=== PATIENT | male | born 1950 | race Caucasian/White ===

== ENCOUNTER → 2018-07-09 16:15 | Outpatient (CLI) | payer OTHER | END | disposition home or self-care (01) | LOC: D.LABREF 16:15 | DX: M17.12 Unilateral primary osteoarthritis, left knee (principal); Z11.8 Encounter for screening for other infectious and parasitic diseases ==

== ENCOUNTER 2018-07-16 10:06 | Inpatient (IN) | payer MEDICARE, BC ==
[~2018-07-16] VITALS: Ht 185.4 cm; Wt 106.8 kg
[2018-08-14] MEDS ORDERED: COZAAR25 MG PO (16:14)
[2018-08-14] MEDS ORDERED: LIPITOR40 MG PO (16:14)
[2018-08-14] MEDS ORDERED: HYDROCHLOROTHIA25 MG PO (16:14)
[2018-08-15] MEDS ORDERED: HYDROXYZINE HCL50 MG PO (10:35)
[2018-08-15] MEDS ORDERED: ULTRAM50 MG PO (10:35)
[2018-08-15] MEDS ORDERED: AREDS PO (10:36)
[2018-08-15 11:15] LABS: APTT 28.6 SECONDS (22.8-39.4); INR 1.02 (0.85-1.17); PROTIME 12.9 SECONDS (11.6-15.0)
[2018-08-15 11:17] LABS: ANION GAP 12.8 mmol/L (8-16); CALCIUM 9.3 mg/dL (8.5-10.1); CARBON DIOXIDE 29.7 mmol/L (21.0-32.0); CREATININE - SERUM 1.2 mg/dL (0.6-1.3); POTASSIUM - SERUM 3.5 mmol/L (3.5-5.1)
[2018-08-15 12:08] LABS: APPEARANCE CLEAR (CLEAR); BILIRUBIN NEGATIVE (NEGATIVE); COLOR YELLOW (YELLOW); GLUCOSE NEGATIVE (NEGATIVE); KETONE NEGATIVE (NEGATIVE); NITRITE NEGATIVE (NEGATIVE); PROTEIN NEGATIVE (NEGATIVE); UROBILINOGEN NORMAL (NORMAL)
[2018-08-15 12:18] LABS: BASOPHILS 0.7 % (0-2); EOSINOPHILS 4.3 % (0-7); HEMATOCRIT 45.1 % (42.0-54.0); IMMATURE GRANULOCYTES 0.1 % (0-5); LYMPHOCYTES 36.8 % (15-50); MCH 28.6 pg (26.0-34.0); MCHC 33.3 g/dL (31.0-37.0); MCV 86.1 fL (80.0-100.0); MEAN PLATELET VOLUME 11.4 fL (7.4-10.4); MONOCYTES 7.4 % (2-11); NEUTROPHILS 50.7 % (40-80); PLATELET COUNT 173 10x3/uL (130-400); RBC 5.24 10x6/uL (4.20-6.10); RDW 14.7 % (11.5-14.5); WBC 8.2 10x3/uL (4.8-10.8)
[2018-08-15 12:19] LABS: ERYTHROCYTE SEDIMENTATION RATE 7 mm/hr (0-20)
[2018-08-21 07:46] VITALS: BP 133/81; BMI 31.0
--- NOTE | 2018-08-21 11:59 | NUR ---
PLASMA BLADE SET 6/8 BOVIE PAD RIGHT THIGH [id number] EXP 12/08/2019
--- NOTE | 2018-08-21 14:35 | NUR ---
PT ARRIVED TO UNIT FROM RECOVERY TO ROOM 2207, ORIENTED TO ROOM CL IN REACH
[2018-08-21 14:37] VITALS: BP 101/69
[2018-08-21 18:12] VITALS: Ht 185.4 cm; Wt 106.8 kg
--- NOTE | 2018-08-21 19:40 | OP ---
PATIENT NAME: FELIPE HAYWARD MEDICAL RECORD: [id number] :48 LOCATION:D.MS [id number] ADMISSION DATE:08/21/18 SURGEON: JOSÉ LUIS LLOYD DO DATE OF OPERATION: 08/21/2018 PROCEDURE PERFORMED: Left total knee arthroplasty. PREOPERATIVE DIAGNOSIS: Left knee osteoarthritis. POSTOPERATIVE DIAGNOSIS: Left knee osteoarthritis. INDICATIONS: Mr. Hayward is a 68-year-old male who has had knee pain for quite some time. He did have an infection in that knee approximately 7 years ago. He has been infection free for 7 years. He had it washed out and was on IV antibiotics and had not had any problem since. In lieu of that, I got an MRI of the knee to ensure there was no osteomyelitis and did an aspiration of his knee as well. No cultures of any bacteria were grown of the knee aspirate and no osteo was noted on the MRI. He has been tired of dealing with this pain in his knee and he is ready to have something done. He was informed of risks and benefits of the procedure including increased risk for infection due to his previous infection, damage to nerves and vessels, blood clots, even , need for further surgery, and fracture. He was okay with those risks and signed the consent. SURGEON: José Luis Lloyd DO PROCESS SPECIALIST: Marshall Bello, Advanced Nurse Practitioner. He assisted with closing and retracting, and could not have been performed without his assistance. DESCRIPTION OF PROCEDURE: The patient received a block by anesthesia in the preoperative area. He was taken to the operative suite and laid in the supine position. The left lower extremity was prepped and draped in sterile fashion. He was given 900 mg of clindamycin due to vancomycin allergy and a gram of TXA. The time-out was performed and everyone was in agreement with correct site, side, and patient. The procedure then began after marking out the knee over the prior incision and wrapping it with Ioban. With #10 blade scalpel down to the capsule, capsule was opened in with a fresh #10 blade scalpel. Through the medial parapatellar approach, the previous incision was used, there was quite a bit of scar tissue there. Some of it was removed behind the patella. At that time, the patella was everted and milled down to fit the patellar prosthesis. The knee was then flexed up and then a drill was used into the femoral canal. The distal femur was then cut. Once the distal femur was cut, the tibia was exposed and the tibia was cut as well. After the tibia had been cut, the knee was brought to extension and any remaining bone was removed at that time and the medial and lateral menisci as well. Any bleeders were coagulated with the Aquamantys at that time. A medial release was done at that time due to the fact he had some extra tension on the knee on the medial side. Then, extension block was put in and fit well. The knee was then flexed up and the femur was measured to be 75. A 4-in-1 cutting block was put on. Clemente wing was used to ensure it did not notch and a formal cutting block was used to cut the femur. The trial was then put on and then tibial tray was floated in. Once the tibial tray was floated in, rotation was marked and this was removed and the lug holes were drilled for the femur and the patella was drilled for the prosthesis. The trials were removed and the tibia was sized to be an 83. This was punched and OPERATIVE REPORT [id number] FELIPE HAYWARD drilled and then cement was mixed and placed in the tibia and on the prosthesis. This was impacted in place. Excess cement was removed. The femur was then impacted on and the poly was put in between the tibia and the femur, brought to extension. The patella was put on and squeezed into place. Excess cement was removed from that. While the cement dried, the knee was irrigated thoroughly. Any bleeders were coagulated. We then began with a 10 poly. It fit somewhat well and got almost hyperextension as it went to 12 and then to 14. He had some laxity medially and deep flexion. Then, the 16 poly was put in and could not get full extension. I then put a towel clamp on the capsule, closing it, and then tested it in deep flexion. There was no loosening noted at that time. This was likely due to release of the MCL; but with the capsule closed, it was not unstable. The 14 poly was then put in and the locking mechanism was put in. The knee was irrigated one more time and then Surgicel beads were placed in gutters as well as tobramycin powder. The knee was closed with #2 Ethibond and the capsule in a [id number] fashion. That was then irrigated and the skin was closed with 2-0 Vicryl in inverted interrupted fashion. ZipLine was placed on the knee. Adaptic, 4 x 4, ABD, Webril, and Tyree wrap were then placed on the table. CHRISTELLE hose stockinette was placed up the knee. The patient was then awakened and taken to the recovery in stable condition. BLOOD LOSS: Approximately 200 mL. COMPLICATIONS: None. TRANSINT:[id number] Voice Confirmation ID: [id number] DOCUMENT ID: [id number] JOSÉ LUIS LLOYD DO at 1940 CC: [id number] DICTATION DATE: 08/21/18 1342 FIREFIGHTING EQUIPMENT SPECIALIST: 08/21/18 1548 ADM IN [facility] [address] [place] [address]
--- NOTE | 2018-08-21 19:42 | NUR ---
I have reviewed this patient and I concur with the Shift Assessment completed by the Licensed Practical Nurse today this shift.
[2018-08-22] VITALS (7 sets, daily range): BP systolic 98–141; BP diastolic 64–80
[2018-08-22 06:16] LABS: HEMATOCRIT 38.8 % (42.0-54.0); HEMOGLOBIN 13.1 g/dL (13.5-17.5); MCH 29.2 pg (26.0-34.0); MCHC 33.8 g/dL (31.0-37.0); MCV 86.4 fL (80.0-100.0); MEAN PLATELET VOLUME 11.6 fL (7.4-10.4); RBC 4.49 10x6/uL (4.20-6.10); RDW 14.6 % (11.5-14.5); WBC 7.2 10x3/uL (4.8-10.8)
--- NOTE | 2018-08-22 08:24 | NUR ---
AWAKE AND ALERT. ORIENTED X3. NO C/O AT THIS TIME. LUNGS ARE CLEAR BILATERALLY, NO COUGH NOTED. SKIN IS INTACT WITHOUT REDNESS EXCPEET INCISION TO LEFT KNEE, WHICH HAS A DRY INTACT DRESSING IN PLACE IV TO LEFT FOREARM IS PATENT WTIHOUT REDNESS AT INSERTION SITE. DENIES NEEDS. CLEAR YELLOW URINE IN URINAL. DENIES NEEDS.
--- NOTE | 2018-08-22 09:30 | NUR ---
UP IN HALLWAY WITH PT USING RW. IN CHAIR AT BEDSIDE.
[2018-08-22 09:42] LABS: BASOPHILS 0.6 % (0-2); EOSINOPHILS 1.4 % (0-7); HEMATOCRIT 38.6 % (42.0-54.0); HEMOGLOBIN 12.9 g/dL (13.5-17.5); IMMATURE GRANULOCYTES 0.1 % (0-5); LYMPHOCYTES 26.1 % (15-50); MCH 29.1 pg (26.0-34.0); MCHC 33.4 g/dL (31.0-37.0); MCV 86.9 fL (80.0-100.0); MEAN PLATELET VOLUME 11.3 fL (7.4-10.4); MONOCYTES 9.6 % (2-11); NEUTROPHILS 62.2 % (40-80); PLATELET COUNT 148 10x3/uL (130-400); RBC 4.44 10x6/uL (4.20-6.10); RDW 14.6 % (11.5-14.5); WBC 7.2 10x3/uL (4.8-10.8)
[2018-08-22 10:02] LABS: ALBUMIN 3.2 g/dL (3.4-5.0); ANION GAP 10.8 mmol/L (8-16); BILIRUBIN - TOTAL 2.08 mg/dL (0.2-1.3); CALCIUM 7.9 mg/dL (8.5-10.1); CARBON DIOXIDE 30.3 mmol/L (21.0-32.0); CREATININE - SERUM 1.1 mg/dL (0.6-1.3); POTASSIUM - SERUM 4.1 mmol/L (3.5-5.1); PROTEIN - SERUM 5.6 g/dL (6.4-8.2)
--- NOTE | 2018-08-22 12:34 | NUR ---
PAIN CONTINUED TO BE 10/10 AFTER OXYCODONE GIVEN. TORDAL GIVEN FOR PAIN 10/10. WILL CONTINUE TO MONITOR. .
--- NOTE | 2018-08-22 13:08 | NUR ---
STATES PAIN IS DECREASED TO 6/10 AFTER RECEIVING TORDOL. "THE MEDICINE IS WORKING."
--- NOTE | 2018-08-22 14:15 | NUR ---
TEDS OFF AT THIS TIME. DENIES NEEDS.
--- NOTE | 2018-08-22 15:30 | NUR ---
CHRISTELLE'S REAPPLIED. NO C/O AT THIS TIME. DENIES NEEDS.
--- NOTE | 2018-08-22 18:00 | NUR ---
ATE ALL OF SUPPER. CPM IN PLACE AT THIS TIME. REQUESTED AND GIVEN 10MG OXY PO FOR C/O LEFT KNEE PAIN LEVEL 10. WILL MONITOR.
--- NOTE | 2018-08-22 20:00 | NUR ---
RESTING IN BED RESP UNLABORED CPM IN USE, NO APPARENT DISTRESS CALL ALICIA HA
[2018-08-23] VITALS: BP 120/68
[2018-08-23 05:05] LABS: BASOPHILS 0.5 % (0-2); EOSINOPHILS 3.8 % (0-7); HEMATOCRIT 38.6 % (42.0-54.0); HEMOGLOBIN 12.8 g/dL (13.5-17.5); LYMPHOCYTES 27.6 % (15-50); MCH 28.8 pg (26.0-34.0); MCHC 33.2 g/dL (31.0-37.0); MCV 86.7 fL (80.0-100.0); MEAN PLATELET VOLUME 11.3 fL (7.4-10.4); MONOCYTES 10.2 % (2-11); NEUTROPHILS 57.9 % (40-80); PLATELET COUNT 135 10x3/uL (130-400); RBC 4.45 10x6/uL (4.20-6.10); RDW 14.6 % (11.5-14.5)
[2018-08-23 05:26] LABS: ANION GAP 10.7 mmol/L (8-16); BILIRUBIN - TOTAL 2.56 mg/dL (0.2-1.3); CALCIUM 8.2 mg/dL (8.5-10.1); CARBON DIOXIDE 31.1 mmol/L (21.0-32.0); CREATININE - SERUM 1.3 mg/dL (0.6-1.3); POTASSIUM - SERUM 3.8 mmol/L (3.5-5.1); PROTEIN - SERUM 6.4 g/dL (6.4-8.2)
--- NOTE | 2018-08-23 08:06 | NUR ---
AWAKE AND ALERT. ORIENTED X3. NO C/O AT THIS TIME. LUNGS ARE CLEAR BILATERALLY, NO COUGH NOTED. REPORTS USING IS INSTRUCTED. SKIN IS INTACT WITHOUT REDNESS EXCEPT INCISION TO RIGHT KNEE WHICH HAS A DRY INTACT DRESSING IN PLACE. ON CPM AT THIS TIME. SCD'S AND TEDS IN PLACE. SL TO LEFT FOREARM IS PATENT WITHOUT REDNESS AT INSERTION SITE. DENIES NEEDS.
--- NOTE | 2018-08-23 08:39 | NUR ---
REQUESTED AND GIVEN 10 MG OXY IR PO FOR C/O LEFT KNEE LEVEL 10. WILL MONITOR.
[2018-08-23 09:36] VITALS: BP 113/65
--- NOTE | 2018-08-23 10:05 | NUR ---
HERE ASSISTING WITH BATH. C/O SOME NAUSEA AT THIS TIME. WILL MONITOR.
--- NOTE | 2018-08-23 10:13 | MORECARE ---
CASE MANAGEMENT DISCHARGE SUMMARY PATIENT: FELIPE CONTRERAS UNIT: [id number] ADM DATE: 08/21/18 AGE: 68 : 49 SEX: M ROOM/BED: D.2208 AUTHOR: DAHLIA HANSON PHYSICIAN: REFERRING PHYSICIAN: RALPH LLOYD DO DATE OF SERVICE: 08/23/18 Discharge Plan Patient Name: FELIPE CONTRERAS Facility: [facility]:[place] : 1950 Planned Disposition: Home Health Service Anticipated Discharge Date: Discharge Date: Expected LOS: Initial Reviewer: [email or web address] Initial Review Date: 08/21/2018 Generated: 08/23/18 11:13 am DCPIA - Discharge Planning Initial Assessment Updated by [email or web address]: Stephanie Montano on 08/23/18 10:11 am * Is the patient Alert and Oriented? Yes * How many steps to enter\exit or inside your home? * [facility] * [facility]) * Preadmission Environment Home with Family * ADLs Independent * Equipment Bedside Commode Rolling Walker Shower Chair * Other Equipment CPM ICE MACHINE * List name and contact numbers for known caregivers / representatives who currently or will assist patient after discharge: ALEXANDER ()[phone] * Verbal permission to speak to the caregivers and representatives has been obtained from the patient. Yes * Community resources currently utilized None * Additional services required to return to the preadmission environment? Yes * Can the patient safely return to the preadmission environment? Yes * Has this patient been hospitalized within the prior 30 days at any hospital? No Patient Name: FELIPE CONTRERAS Page [id number] at 1013 All edits/amendments must be made on the electronic document DICTATION DATE: 08/23/18 1013 SPEECH PATHOLOGY SUPERVISOR: JESUS ALBERTO 08/23/18 1013 RPT#: [id number] DC DATE: STATUS: ADM IN [facility] [address] [place] [address] END OF REPORT
--- NOTE | 2018-08-23 10:20 | MORECARE ---
CASE MANAGEMENT DISCHARGE SUMMARY PATIENT: FELIPE CONTRERAS UNIT: [id number] ADM DATE: 08/21/18 AGE: 68 : 49 SEX: M ROOM/BED: D.2204 AUTHOR: DAHLIA HANSON PHYSICIAN: REFERRING PHYSICIAN: RALPH LLOYD DO DATE OF SERVICE: 08/23/18 Discharge Plan Patient Name: FELIPE CONTRERAS Facility: [facility]:[place] : 1950 Planned Disposition: Home Health Service Anticipated Discharge Date: Discharge Date: Expected LOS: Initial Reviewer: [email or web address] Initial Review Date: 08/21/2018 Generated: 08/23/18 11:20 am Comments DCP- Discharge Planning Updated by [email or web address]: Stephanie Montano on 08/23/18 9:[address] Patient Name: FELIPE CONTRERAS Admission Status: Elective Accout number: [id number] Admission Date: 08-21-2018 : 1950 Admission Diagnosis: Attending: RALPH LLOYD Current LOS: 2 Anticipated DC Date: Planned Disposition: Home Health Service Primary Insurance: MEDICARE A & B Discharge Planning Comments: CM met with patient to complete initial dc planning assessment. CM educated patient on the CM role and verbal consent given by patient to complete assessment. Patient lives at home with his . At discharge patient plans to return home with home health and feels this is a safe discharge. CM discussed availability of home health, rehab services, and medical equipment. Patient has a walker, cpm, ice machine, and bsc at home that was set up by Dr Lloyd's office. NUNU with [facility]. I called and spoke with Amalia. I will send clinical over to her office. IMM served and explained, copy in chart. CM will continue to follow and will assist as needed with dc plans/needs. Antique Dealer: Stephanie Montano DCPIA - Discharge Planning Initial Assessment Updated by [email or web address]: Stephanie Montano on 08/23/18 10:11 am * Is the patient Alert and Oriented? Yes * How many steps to enter\exit or inside your home? * [facility] * [facility] * Preadmission Environment Home with Family * ADLs Independent * Equipment Bedside Commode Rolling Walker Shower Chair * Other Equipment CPM ICE MACHINE * List name and contact numbers for known caregivers / representatives who currently or will assist patient after discharge: MARLA ()[phone] * Verbal permission to speak to the caregivers and representatives has been obtained from the patient. Yes * Community resources currently utilized None * Additional services required to return to the preadmission environment? Yes * Can the patient safely return to the preadmission environment? Yes * Has this patient been hospitalized within the prior 30 days at any hospital? No Coverage Notice Reviewer: [id number] Svetlana Montano Notice Issued Date-Time: 08/23/2018 9:50 Notice Type: IM Discharge Notice Notice Delivered To: Family Member Relationship to Patient: Spouse Company Secretary Name: marla Delivery Method: HAND - Hand Delivered Carla Days: Prior Verbal Notification: Recipient Understood Notice: Yes Recipient Signature: Yes Med Rec Note Co-signed by Attending: Coverage Notice Comment: Last DP export: 08/23/18 9:13 am Patient Name: FELIPE CONTRERAS Page 24830 at 1020 All edits/amendments must be made on the electronic document DICTATION DATE: 08/23/18 1019 CHEF & OWNER: JESUS ALBERTO 08/23/18 1019 RPT#: [id number] DC DATE: STATUS: ADM IN [facility] [address] [place] [address] END OF REPORT
--- NOTE | 2018-08-23 10:27 | MORECARE ---
CASE MANAGEMENT DISCHARGE SUMMARY PATIENT: FELIPE CONTRERAS UNIT: [id number] ADM DATE: 08/21/18 AGE: 68 : 49 SEX: M ROOM/BED: D.2203 AUTHOR: DAHLIA HANSON PHYSICIAN: REFERRING PHYSICIAN: RALPH LLOYD DO DATE OF SERVICE: 08/23/18 Discharge Plan Patient Name: FELIPE CONTRERAS Facility: [facility]:[place] : 1950 Planned Disposition: Home Health Service Anticipated Discharge Date: Discharge Date: Expected LOS: Initial Reviewer: [email or web address] Initial Review Date: 08/21/2018 Generated: 08/23/18 11:26 am Comments DCP- Discharge Planning Updated by [email or web address]: Stephanie Montano on 08/23/18 9:[address] Patient Name: FELIPE CONTRERAS Admission Status: Elective Accout number: [id number] Admission Date: 08-21-2018 : 1950 Admission Diagnosis: Attending: RALPH LLOYD Current LOS: 2 Anticipated DC Date: Planned Disposition: Home Health Service Primary Insurance: MEDICARE A & B Discharge Planning Comments: CM met with patient to complete initial dc planning assessment. CM educated patient on the CM role and verbal consent given by patient to complete assessment. Patient lives at home with his . At discharge patient plans to return home with home health and feels this is a safe discharge. CM discussed availability of home health, rehab services, and medical equipment. Patient has a walker, cpm, ice machine, and bsc at home that was set up by Dr Lloyd's office. NUNU with [facility]. I called and spoke with Amalia. I will send clinical over to her office. IMM served and explained, copy in chart. CM will continue to follow and will assist as needed with dc plans/needs. Evp General Counsel: Stephanie Montano DCPIA - Discharge Planning Initial Assessment Updated by [email or web address]: Stephanie Montano on 08/23/18 10:11 am * Is the patient Alert and Oriented? Yes * How many steps to enter\exit or inside your home? * [facility] * [facility] * Preadmission Environment Home with Family * ADLs Independent * Equipment Bedside Commode Rolling Walker Shower Chair * Other Equipment CPM ICE MACHINE * List name and contact numbers for known caregivers / representatives who currently or will assist patient after discharge: MARLA ()[phone] * Verbal permission to speak to the caregivers and representatives has been obtained from the patient. Yes * Community resources currently utilized None * Additional services required to return to the preadmission environment? Yes * Can the patient safely return to the preadmission environment? Yes * Has this patient been hospitalized within the prior 30 days at any hospital? No External Providers External Provider: [employer] Next Contact Date: Service Request Date: Service Type: Resolution: Reviewer: Comments: Coverage Notice Reviewer: [email or web address] Svetlana Montano Notice Issued Date-Time: 08/23/2018 9:50 Notice Type: IM Discharge Notice Notice Delivered To: Family Member Relationship to Patient: Spouse Rainbow Trout Farm Manager Name: marla Delivery Method: HAND - Hand Delivered Carla Days: Prior Verbal Notification: Recipient Understood Notice: Yes Recipient Signature: Yes Med Rec Note Co-signed by Attending: Coverage Notice Comment: Last DP export: 08/23/18 9:20 am Patient Name: FELIPE CONTRERAS Page [id number] at 1027 All edits/amendments must be made on the electronic document DICTATION DATE: 08/23/18 1026 CAREER CENTER DIRECTOR: JESUS ALBERTO 08/23/18 1026 RPT#: [id number] DC DATE: STATUS: ADM IN [facility] [address] [place] [address] END OF REPORT
[2018-08-23 17:31] VITALS: BP 98/64
[2018-08-23 20:00] VITALS: BP 111/57
--- NOTE | 2018-08-23 20:00 | NUR ---
AWAKE AND ALERT RESTING IN BED WITH CMP IN USE TOLERATING WELL, DENIES NEEDS AT THIS TIME CALL LIGHT IN REACH
[2018-08-24 04:00] VITALS: BP 121/65
--- NOTE | 2018-08-24 04:26 | NUR ---
DR LLOYD NOTIFIED OF ELEVATED TEMP 102, ORDER RECIEVED FOR TYLENOL AND TO ENCOURAGE INSENTIVE SPRIMETER USE , O2 REPLACED AT 2 L DUE TO O2 SAT 84 UP TO 89
[2018-08-24 04:34] LABS: BASOPHILS 0.3 % (0-2); EOSINOPHILS 4.5 % (0-7); HEMATOCRIT 37.5 % (42.0-54.0); HEMOGLOBIN 12.4 g/dL (13.5-17.5); IMMATURE GRANULOCYTES 0.2 % (0-5); LYMPHOCYTES 19.7 % (15-50); MCH 28.5 pg (26.0-34.0); MCHC 33.1 g/dL (31.0-37.0); MCV 86.2 fL (80.0-100.0); MEAN PLATELET VOLUME 11.4 fL (7.4-10.4); MONOCYTES 8.6 % (2-11); NEUTROPHILS 66.7 % (40-80); PLATELET COUNT 130 10x3/uL (130-400); RBC 4.35 10x6/uL (4.20-6.10); RDW 14.3 % (11.5-14.5)
[2018-08-24 04:41] LABS: ALBUMIN 2.9 g/dL (3.4-5.0); ANION GAP 13.5 mmol/L (8-16); BILIRUBIN - TOTAL 2.18 mg/dL (0.2-1.3); CALCIUM 8.4 mg/dL (8.5-10.1); CARBON DIOXIDE 30.1 mmol/L (21.0-32.0); CREATININE - SERUM 1.5 mg/dL (0.6-1.3); POTASSIUM - SERUM 3.6 mmol/L (3.5-5.1); PROTEIN - SERUM 6.6 g/dL (6.4-8.2)
--- NOTE | 2018-08-24 08:22 | NUR ---
PT RESTING IN BED. ON CPM. I.S EDUCATION GIVEN. COUGH AND DEEP BREATHING ENCOURAGED. NO S/S OF ACUTE DISTRESS. CL IN PLACE.
[2018-08-24 08:45] VITALS: BP 100/63
[2018-08-24 12:59] VITALS: BP 96/53
--- NOTE | 2018-08-24 14:12 | NUR ---
PT CO OF IV ITCHING. FLUSHED WELL. STOPPED AZYTHROMYCIN. CALLED RICH WITH PHARM WHO STATED "NOT IN THE SAME FAMILY VANCOMYCIN". SPOKE WITH JESS ROSA WHO SUGGESTED GIVEN ATARAX ORDERED PER MD. NO S/S OF ACUTE DISTRESS. CL IN PLACE.
[2018-08-24 15:58] LABS: APPEARANCE CLEAR (CLEAR); BILIRUBIN NEGATIVE (NEGATIVE); COLOR YELLOW (YELLOW); GLUCOSE NEGATIVE (NEGATIVE); KETONE NEGATIVE (NEGATIVE); NITRITE NEGATIVE (NEGATIVE); PROTEIN TRACE mg/dL (NEGATIVE); UROBILINOGEN NORMAL (NORMAL)
[2018-08-24 17:45] VITALS: BP 111/71
--- NOTE | 2018-08-24 18:36 | NUR ---
PT RESTING IN BED. CO OF PAIN. TORDOL GIVEN. NO S/S OF ACUTE DISTRESS. AT BEDSIDE. CL IN PLACE.
--- NOTE | 2018-08-24 19:15 | NUR ---
RECEIVED CARE FROM DAY NURSE. LYING IN BED WITH CPM IN PLACE. REQUEST IT TO BE REMOVED, DONE AT THIS TIME. NO OTHER NEEDS VOICED AT THIS TIME. CALL LIGHT AT SIDE. IV INFUSING PER ORDER TO LEFT AC.
[2018-08-24 20:00] VITALS: BP 101/48
--- NOTE | 2018-08-24 20:30 | NUR ---
CHRISTELLE'S REMOVED FOR NIGHT
[2018-08-24 23:35] VITALS: BP 109/63
[2018-08-25 04:00] VITALS: BP 94/44
--- NOTE | 2018-08-25 06:01 | NUR ---
PLACED ON CPM
--- NOTE | 2018-08-25 06:01 | NUR ---
CHRISTELLE'S PUT ON FOR DAY
[2018-08-25 06:17] LABS: BASOPHILS 0.5 % (0-2); HEMATOCRIT 30.4 % (42.0-54.0); HEMOGLOBIN 10.2 g/dL (13.5-17.5); IMMATURE GRANULOCYTES 0.2 % (0-5); LYMPHOCYTES 25.3 % (15-50); MCH 28.8 pg (26.0-34.0); MCHC 33.6 g/dL (31.0-37.0); MCV 85.9 fL (80.0-100.0); MEAN PLATELET VOLUME 11.3 fL (7.4-10.4); MONOCYTES 11.3 % (2-11); NEUTROPHILS 53.7 % (40-80); PLATELET COUNT 126 10x3/uL (130-400); RBC 3.54 10x6/uL (4.20-6.10); RDW 14.1 % (11.5-14.5)
[2018-08-25 06:26] LABS: WBC 5.9 10x3/uL (4.8-10.8)
[2018-08-25 06:49] LABS: ALBUMIN 2.6 g/dL (3.4-5.0); ANION GAP 13.4 mmol/L (8-16); BILIRUBIN - TOTAL 1.96 mg/dL (0.2-1.3); CALCIUM 7.9 mg/dL (8.5-10.1); CARBON DIOXIDE 29.1 mmol/L (21.0-32.0); CREATININE - SERUM 1.3 mg/dL (0.6-1.3); POTASSIUM - SERUM 3.5 mmol/L (3.5-5.1); PROTEIN - SERUM 5.8 g/dL (6.4-8.2)
--- NOTE | 2018-08-25 08:09 | NUR ---
PT RESTING IN BED. AROUSED BY VERBAL STIMULI. "WANTS TO GO HOME". DENIES PAIN. NO S/S OF ACUTE DISTRESS. CL IN PLACE.
[2018-08-25] MEDS ORDERED: ELIQUIS2.5 MG PO (09:28)
[2018-08-25] MEDS ORDERED: HYDROXYZINE HCL50 MG PO (09:28)
[2018-08-25] MEDS ORDERED: OXYCODONE HCL5 M1 PO (09:29)
[2018-08-25] MEDS ORDERED: KEFLEX500 MG PO (09:29)
[2018-08-25 10:59] VITALS: BP 123/71
--- NOTE | 2018-08-25 11:41 | NUR ---
DC INSTRUCTIONS AND EDUCATION DONE WITH PT AND . IV DC WITH TIP IN TACT. ASSISTED PT OFF FLOOR VIA WC. ALL BELONGINGS CARRIED DOWN BY . NO S/S OF ACUTE DISTRESS.
--- NOTE | 2018-08-27 14:55 | MORECARE ---
CASE MANAGEMENT DISCHARGE SUMMARY PATIENT: FELIPE CONTRERAS UNIT: [id number] ADM DATE: 08/21/18 AGE: 68 : 49 SEX: M ROOM/BED: D.2205 AUTHOR: DAHLIA HANSON PHYSICIAN: REFERRING PHYSICIAN: RALPH LLOYD DO DATE OF SERVICE: 08/27/18 Discharge Plan Patient Name: FELIPE CONTRERAS Facility: [facility]:[place] : 1950 Planned Disposition: Home Health Service Anticipated Discharge Date: Discharge Date: 08/25/2018 Expected LOS: 0 Initial Reviewer: [email or web address] Initial Review Date: 08/21/2018 Generated: 08/27/18 3:55 pm Comments DCP- Discharge Planning Updated by [email or web address]: Stephanie Montano on 08/23/18 8:[address] Patient Name: FELIPE CONTRERAS Admission Status: Elective Accout number: [id number] Admission Date: 08-21-2018 : 1950 Admission Diagnosis: Attending: RALPH LOLYD Current LOS: 2 Anticipated DC Date: Planned Disposition: Home Health Service Primary Insurance: MEDICARE A & B Discharge Planning Comments: CM met with patient to complete initial dc planning assessment. CM educated patient on the CM role and verbal consent given by patient to complete assessment. Patient lives at home with his . At discharge patient plans to return home with home health and feels this is a safe discharge. CM discussed availability of home health, rehab services, and medical equipment. Patient has a walker, cpm, ice machine, and bsc at home that was set up by Dr Lloyd's office. NUNU with [facility]. I called and spoke with Amalia. I will send clinical over to her office. IMM served and explained, copy in chart. CM will continue to follow and will assist as needed with dc plans/needs. Change Management Analyst: Stephanie Montano DCPIA - Discharge Planning Initial Assessment Updated by [email or web address]: Stephanie Montano on 08/23/18 10:11 am * Is the patient Alert and Oriented? Yes * How many steps to enter\exit or inside your home? * [facility] * [facility] ([facility] * Preadmission Environment Home with Family * ADLs Independent * Equipment Bedside Commode Rolling Walker Shower Chair * Other Equipment CPM ICE MACHINE * List name and contact numbers for known caregivers / representatives who currently or will assist patient after discharge: MARLA ()[phone] * Verbal permission to speak to the caregivers and representatives has been obtained from the patient. Yes * Community resources currently utilized None * Additional services required to return to the preadmission environment? Yes * Can the patient safely return to the preadmission environment? Yes * Has this patient been hospitalized within the prior 30 days at any hospital? No Coverage Notice Reviewer: [id number] Svetlana Montano Notice Issued Date-Time: 08/23/2018 9:50 Notice Type: IM Discharge Notice Notice Delivered To: Family Member Relationship to Patient: Spouse Tram Operator Name: marla Delivery Method: HAND - Hand Delivered Carla Days: Prior Verbal Notification: Recipient Understood Notice: Yes Recipient Signature: Yes Med Rec Note Co-signed by Attending: Coverage Notice Comment: Last DP export: 08/23/18 8:27 am Patient Name: FELIPE CONTRERAS Page [id number] at 1455 All edits/amendments must be made on the electronic document DICTATION DATE: 08/27/181453 BROOMCORN GRADER: JESUS ALBERTO 08/27/181453 RPT#: [id number] DC DATE:08/25/18 STATUS: DIS IN [facility] [address] [place] [address] END OF REPORT
== END 2018-08-25 11:43 | disposition home health service (06) | DRG 470 ==
LOC: D.MS 08-21 07:20 → D.SDCHOLD 08-21 07:20 → D.MS 08-21 14:26
PROVIDERS: Emergency Medicine; ADMIT Orthopaedic Surgery; ATTEND Orthopaedic Surgery
PROC: 0SRD0JZ Replacement of Left Knee Joint with Synthetic Substitute, Open Approach (ICD-10-PCS; principal; 2018-08-21 09:30)
DX: M17.12 Unilateral primary osteoarthritis, left knee (principal); J98.11 Atelectasis; D62 Acute posthemorrhagic anemia; I10 Essential (primary) hypertension; I25.10 Atherosclerotic heart disease of native coronary artery without angina pectoris; H91.92 Unspecified hearing loss, left ear

== ENCOUNTER → 2018-07-24 09:48 | Outpatient (CLI) | payer MEDICARE, BC ==
[~2018-07-24 09:48] MED LIST: AREDS PO; COZAAR25 MG PO; HYDROCHLOROTHIA25 MG PO; HYDROXYZINE HCL50 MG PO; LIPITOR40 MG PO; ULTRAM50 MG PO
== END | disposition home or self-care (01) ==
LOC: D.MRI 09:48
DX: M17.12 Unilateral primary osteoarthritis, left knee (principal)

== ENCOUNTER → 2018-08-15 07:09 | Outpatient (CLI) | payer MEDICARE, BC | END | disposition home or self-care (01) | LOC: D.MRI 07:09 | PROVIDERS: ATTEND Orthopaedic Surgery | DX: M17.12 Unilateral primary osteoarthritis, left knee (principal) ==

== ENCOUNTER → 2018-08-16 14:22 | Outpatient (CLI) | payer MEDICARE, BC ==
[2018-08-16 16:54] LABS: PROTEIN - BODY FLUID 2.1 G/DL
[2018-08-21 18:12] VITALS: BMI 31.0
== END | disposition home or self-care (01) ==
LOC: D.LABREF 14:22
PROVIDERS: ATTEND Nurse Practitioner Family
DX: M17.12 Unilateral primary osteoarthritis, left knee (principal)